=== PATIENT | male | born 1975 | race African-American/Black ===

== ENCOUNTER 2023-09-30 18:42 | Emergency (ER) | payer MEDICARE, OTHER ==
[~2023-09-30] VITALS: Ht 180.3 cm; Wt 88.9 kg
[2023-09-30] MEDS ORDERED: oxyCODONE/APAP (5/325 MG) 1 UDTAB TABLET ONE (20:13)
[2023-09-30] MEDS ORDERED: LIDOCAINE 5% (PATCH) 1 EA PATCH TP ONE (20:13)
[2023-09-30] MEDS ORDERED: dexaMETHasone SOD PHOSPHATE 4 MG/ML VIAL ONE (20:13)
[2023-09-30] MEDS ORDERED: KETOROLAC TROMETHAMINE 15 MG/ML VIAL ONE (20:13)
[2023-09-30] MEDS ORDERED: ONDANSETRON 4 MG TAB.RAPDIS ONE (20:29)
[2023-09-30] MEDS: dexaMETHasone SOD PHOSPHATE 4 MG/ML VIAL IM ONE (20:30)
[2023-09-30] MEDS: oxyCODONE/APAP (5/325 MG) 1 UDTAB TABLET PO ONE (20:30)
[2023-09-30] MEDS: KETOROLAC TROMETHAMINE 15 MG/ML VIAL IM ONE (20:30)
[2023-09-30] MEDS ORDERED: ACETAMINOPHEN ES 500 MG TABLET PO ONE (20:30)
[2023-09-30] MEDS: LIDOCAINE 5% (PATCH) 1 EA PATCH TP ONE (20:31)
[2023-09-30] MEDS: ONDANSETRON 4 MG TAB.RAPDIS PO ONE (20:31)
[2023-09-30] MEDS ORDERED: IBUP-1955 PO (21:14)
[2023-09-30] MEDS ORDERED: CYCL5TAB PO (21:14)
[2023-09-30] MEDS ORDERED: ACET-2605 PO (21:14)
[2023-09-30 21:20] VITALS: BP 136/79; TEMP 98; O2SAT 100
== END 2023-09-30 21:20 | disposition home or self-care (01) ==
LOC: ER 18:47
DX: M54.50 Low back pain, unspecified (principal); M79.604 Pain in right leg; Z88.0 Allergy status to penicillin
CPT/HCPCS: 99284; 96372 ×2; J1100; Q0162; J1885